=== PATIENT | male | born 1990 | race Hispanic/Latino ===

== ENCOUNTER 2018-01-07 12:31 | Emergency (ER) | payer OTHER ==
[2018-01-07 13:16] LABS: RAPID GROUP A STREP NEGATIVE (NEGATIVE)
== END 2018-01-07 14:50 | disposition home or self-care (01) ==
LOC: EDH 12:31
DX: J11.1 Influenza due to unidentified influenza virus with other respiratory manifestations (principal)
CPT/HCPCS: 87804; 87880

== ENCOUNTER 2018-12-23 22:35 | Emergency (ER) | payer OTHER ==
[2018-12-23] MEDS ORDERED: KETOROLAC TROMETHAMINE 60 MG/2 ML VIAL ONE (23:37)
[2018-12-23] MEDS ORDERED: DEXAMETHASONE SOD PHOSPHATE 10MG/ML 1ML VIAL ONE (23:37)
== END 2018-12-23 23:48 | disposition home or self-care (01) ==
LOC: EDH 22:35
DX: J11.1 Influenza due to unidentified influenza virus with other respiratory manifestations (principal)
CPT/HCPCS: 87804 ×2; 96372 ×2; 99284; J1100; J1885